=== PATIENT | female | born 1995 | race Caucasian/White ===

== ENCOUNTER 2018-03-06 22:33 | Emergency (ER) | payer SELFPAY ==
[2018-03-06 22:34] VITALS: BP 145/80
[2018-03-06 23:30] VITALS: PULSE 86
== END 2018-03-06 23:39 | disposition home or self-care (01) ==
LOC: COL.ER 22:33
DX: M25.532 Pain in left wrist (principal); G40.909 Epilepsy, unspecified, not intractable, without status epilepticus; W01.198A Fall on same level from slipping, tripping and stumbling with subsequent striking against other object, initial encounter; Y92.009 Unspecified place in unspecified non-institutional (private) residence as the place of occurrence of the external cause; Y93.E1 Activity, personal bathing and showering
CPT/HCPCS: Q4021